=== PATIENT | male | born 1955 | race Caucasian/White ===

== ENCOUNTER 2017-01-06 20:31 | Inpatient (IN) | payer MEDICARE, OTHER ==
[~2017-01-06] VITALS: Ht 165.1 cm; Wt 45.4 kg
[~2017-01-06 20:31] MED LIST: ALBU2.5V7 NEB; Acetaminophen PO; FERR325T28 PO; FLUC100T PO; Nystatin PO; PANT40TA4 PO; [UNRECOGNIZED DRUG - CODE] GT
[2017-01-06] MEDS ORDERED: DOCU-141 PO (20:57)
[2017-01-06] MEDS ORDERED: ACET-2605 PO (20:58)
[2017-01-06] MEDS ORDERED: NA P133E PR (20:58)
[2017-01-06] MEDS ORDERED: ESCI10TA PO (20:58)
[2017-01-06] MEDS ORDERED: MAGN400O6 PO (20:58)
[2017-01-06] MEDS ORDERED: BISA10SU61 PR (20:58)
[2017-01-06] MEDS ORDERED: QUET100T PO (20:58)
[2017-01-06] MEDS ORDERED: ACET-2154 PO (20:58)
--- NOTE | 2017-01-06 21:10 | NUR ---
Patient refusing all tests, including MSE. ERMD notified, orders received.
[2017-01-06] MEDS ORDERED: LORAZEPAM 2 MG/1 ML VIAL IM ONE (21:15)
[2017-01-06] MEDS ORDERED: LORAZEPAM 2 MG/1 ML VIAL ONE (21:26)
--- NOTE | 2017-01-06 23:11 | NUR ---
Pt. admitted to GPS, under care of Dr. Harris Belongs List completed
--- NOTE | 2017-01-06 23:35 | NUR ---
GPS: Pt. admitted to GPS, under care of Dr. Harris, from ER via [facility]. unable to assess patient patient sleepy,unable to answer question. placed on 72 hrs hold for dts/gd. no agitation noted continue monitoring for safety.
--- NOTE | 2017-01-06 23:50 | NUR ---
GPS: PATIENT REFUSED BODY CHECK AND PHOTO TAKEN.
[2017-01-07] MEDS ORDERED: LORAZEPAM 0.5 MG TABLET PO PRN (00:15)
[2017-01-07] MEDS ORDERED: MAGNESIUM HYDROXIDE 30 ML LIQUID UDC PO PRN (00:15)
[2017-01-07] MEDS ORDERED: ZOLPIDEM 5 MG TABLET PO PRN (00:15)
[2017-01-07] MEDS ORDERED: MAG HYDROX/AL HYDROX/SIMETH 30 ML LIQUID UDC PO PRN (00:15)
[2017-01-07] MEDS ORDERED: ACETAMINOPHEN 325 MG TABLET PO PRN (00:15)
[2017-01-07 01:14] VITALS: BP 90/51
--- NOTE | 2017-01-07 06:52 | NUR ---
GPS: REMAIN UNCOOPERATIVE WITH CARE. PATIENT AMBULATE WITH ASSISTANCE.REFUSED SHOWER THIS MORNING. SLEPT 06:15 HRS THROUGH THE NIGHT. CONTINUE PLAN OF CARE. MONITORING FOR SAFETY.
[2017-01-07 07:30] VITALS: BP 91/54
--- NOTE | 2017-01-07 09:16 | NUR ---
TONY COHEN NP. STATES HE WILL RECONCILE MEDS.
--- NOTE | 2017-01-07 11:29 | NUR ---
Initial discharge instructions: Pt resides at [facility] [[address] [place] [address];[phone]].Pt refused to participate in interview,and discuss discharge plans.Per mother,she reports it would be best for him to return to the facility.Spoke with Lean in admissions who reported the pt will be accepted back once stable.SW will speak with pt and MD regarding appropriate discharge plans.SW will form a safe and proper discharge.
[2017-01-07] MEDS: risperiDONE-M 0.5 MG TAB.RAPDIS PO SCH ×2 (11:30→17:00)
--- NOTE | 2017-01-07 12:31 | NUR ---
PT REFUSED HIS FIRST DOSE OF RISPERDAL 2MG PO. PT STATED "THE ANSWER IS NO. I DON'T HAVE A DOCTOR. I REFUSE." WILL CONTINUE TO MONITOR.
--- NOTE | 2017-01-07 13:00 | NUR ---
AFTER EATING LUNCH STAFF WITNESSED PT STICK FINGER DOWN THROAT AND VOMIT ON BED. WHEN ASKED WHY HE WAS DOING THAT HE PUT THE SHEET OVER HIS HEAD AND STATED "VALERIO REY"
--- NOTE | 2017-01-07 14:45 | NUR ---
STAFF WITNESSED PT INDUCING VOMIT ON FLOOR IN ROOM. PT WOULD NOT RESPOND TO THE STAFF WHEN ASKED QUESTIONS, REFUSES TO MAKE EYE CONTACT, REFUSES TO MOVE TO BATHROOM/TOILET/TRASH CAN.
[2017-01-07 15:00] VITALS: BP 82/55
[2017-01-07] MEDS ORDERED: IV NS 1000 ML 2,000 ML IV ONE (16:30)
--- NOTE | 2017-01-07 16:31 | NUR ---
PT HAS HAD SEVERAL MORE EPISODES OF VOMITING (NOT SELF INDUCED WITH FINGER). BP 78/32 HR 86, DENIES FEELING DIZZY. NOTIFIED AMANDA COHEN, [employer] WHO ORDERED 2LNS BOLUS. PT IS REFUSING TO ALLOW US TO PLACE IV OR GET FLUIDS DESPITE EDUCATION ON WHY IT IS NECESSARY. WHEN ASKED WHY HE DOES NOT WANT IV FLUIDS PT REPEATEDLY STATES "VALERIO BARLOW BUNCH". AMANDA COHEN NOTIFIED OF REFUSAL. PT REMAINS ON 1:1 FOR SAFETY.
[2017-01-07 20:20] VITALS: BP 86/55
--- NOTE | 2017-01-08 03:12 | NUR ---
Patient was noted to have induced vomiting while in his bathroom.
--- NOTE | 2017-01-08 06:55 | NUR ---
It was reported to this sign writer letterer or painter by staff assigned to be with patient on 1:1 supervision that at approx 0358, while in the main hallway, this patient attempted to punch staff, then he lost his balance and his forehead made contact with the edge of a wall, then walked the hallway and went back to his bed. Attempted to clean the affected area, however, patient refused. He pulled his blankets over his head and stated, "go way." Attempted to clean area again, and was able to clean the affected area, a laceration of approximately 1cm long was noted in left side of inner eyebrow; however, he pulled away and went back to his bed and covered himself including stating, "go away". attempted x 3 bur continue refusing assessment.
[2017-01-08 07:30] VITALS: BP 91/59
[2017-01-08] MEDS: risperiDONE-M 0.5 MG TAB.RAPDIS PO SCH ×2 (09:00→16:10)
[2017-01-08] MEDS: ESCITALOPRAM OXALATE 10 MG TABLET PO SCH (09:00)
[2017-01-08] MEDS: NICOTINE 14 MG/24HR PATCH TD SCH (09:00)
[2017-01-08 15:51] VITALS: BP 80/55
--- NOTE | 2017-01-08 17:27 | NUR ---
Pt continues to refuse to let nurse take picture or treat laceration to forehead. Easily irritable and quite unpredictable. Refuses medications and attempts to negotiate with nurse for a cigarette. Pt noted to have one episode of self inducing vomiting in unit community water fountain. EVS informed and cleaned. Continue on 1:1 supervision. Pt also refused Podiatry consult with Dr. Leon.
--- NOTE | 2017-01-08 20:19 | NUR ---
PATIENT REFUSED 2100 VITAL SIGNS. PATIENT REMAINS ON A 1:1 DISPLAYS UNPREDICTABLE BEHAVIOR INCLUDING EPISODES WITH AGGRESSIVE OUTBURSTS TOWARDS STAFF WHEN REDIRECTED.
--- NOTE | 2017-01-09 05:40 | NUR ---
Patient continue on 1:1 supervision. He slept approx 3.5hrs through the night. He woke up at approx 0500 and had a shower; he then asked for apple sauce, which he ate. At approx 0540 patient induced vomiting by putting his finger inside his mouth and inducing the gagged reflex. Then he went back to bed. Patient also refused blood drawn yesterday morning and vital sign last night. He continue very labile, easily irritable with flat affect and depressed mood. Pt unable to make eye contact, poor insight. we will continue to monitor.
[2017-01-09 07:30] VITALS: BP 91/48
[2017-01-09] MEDS: ESCITALOPRAM OXALATE 10 MG TABLET PO SCH (08:27)
[2017-01-09] MEDS: risperiDONE-M 0.5 MG TAB.RAPDIS PO SCH ×2 (08:27→17:00)
[2017-01-09] MEDS: NICOTINE 14 MG/24HR PATCH TD SCH (08:28)
[2017-01-09 20:11] VITALS: BP 88/51
[2017-01-10 07:30] VITALS: BP 99/66
--- NOTE | 2017-01-10 08:23 | NUR ---
GPS: Nursing Notes: Chemical Restraint: Patient is awake and responding to his name, poor anger management, loud and angry affect, verbal abusive toward the psychiatrist, using profanities, threatening behavior, overly disruptive by shouting profanities, restless, medicated with Haldol 5mg IM and Benadryl 25mg IM STAT now, B/P=94/66, 64, 18, continue to monitor for safety, continue with 1:1 sitter for safety, continue with treatment plan.
[2017-01-10] MEDS: NICOTINE 14 MG/24HR PATCH TD SCH (08:27)
[2017-01-10] MEDS: ESCITALOPRAM OXALATE 10 MG TABLET PO SCH (08:27)
[2017-01-10] MEDS: risperiDONE-M 0.5 MG TAB.RAPDIS PO SCH ×2 (08:27→16:19)
[2017-01-10] MEDS ORDERED: HALOPERIDOL LACTATE 5 MG/1 ML VIAL IM ONE (08:30)
[2017-01-10] MEDS ORDERED: diphenhydrAMINE 50 MG/1 ML VIAL IM ONE (08:30)
--- NOTE | 2017-01-10 08:53 | NUR ---
GPS: Nursing Notes: Reassessment of Chemical Restraint: Patient continue to be with paranoid behavior, suspicious, guarded, refusing his medications, angry affect, medications IM was helpful, but not effective, gets easily irritable when redirected, refusing V/S, continue with 1:1 sitter for safety, continue with treatment plan.
[2017-01-10 15:28] VITALS: BP 93/55
--- NOTE | 2017-01-10 18:35 | NUR ---
GPS: Nursing Notes: Destructive Behavior To Self: Patient is awake and responding to his name, poor anger management, gets easily irritable when redirected, poor impulse control, resistant with nursing care, suspicious, guarded, refusing his medication PO, "Get out of here..", episodes of clenching his hands when shouting at staff, unable to formulate a plan for self care, continue with 1:1 sitter for safety, per sitter, patient intended 20 times to induce vomiting, but he only vomited 5 times, refusing to participate in therapeutic groups, isolative and withdrawn in his room, continue with treatment plan.
[2017-01-10 20:13] VITALS: BP 96/68
--- NOTE | 2017-01-11 06:56 | NUR ---
Patient slept for approx 7.30 hrs through the night. he induced gagged reflex x1 and induced vomiting x 2 during the shift. he was calm, continue with poor insight, not making eye contact and selectively answering questions.
[2017-01-11 07:30] VITALS: BP 91/61
[2017-01-11] MEDS: ESCITALOPRAM OXALATE 10 MG TABLET PO SCH (08:33)
[2017-01-11] MEDS: NICOTINE 14 MG/24HR PATCH TD SCH (08:34)
[2017-01-11] MEDS: risperiDONE-M 0.5 MG TAB.RAPDIS PO SCH (08:34)
[2017-01-11] MEDS: HALOPERIDOL 5 MG TABLET PO SCH ×2 (09:45→17:05)
[2017-01-11] MEDS: BENZTROPINE MESYLATE 0.5 MG TABLET PO SCH ×2 (09:45→17:05)
[2017-01-11] MEDS: HALOPERIDOL LACTATE 5 MG/1 ML VIAL IM PRN (10:51)
[2017-01-11] MEDS: diphenhydrAMINE 50 MG/1 ML VIAL IM PRN (10:51)
[2017-01-11 16:00] VITALS: BP 90/46
[2017-01-11 20:06] VITALS: BP 85/56
[2017-01-12 07:30] VITALS: BP 90/51
[2017-01-12 08:38] LABS: BASOPHILS % (AUTO) 0.5 % (0.0-2.0); EOSINOPHILS # (AUTO) 0.1 K/uL (0.0-0.7); EOSINOPHILS % (AUTO) 0.7 % (0.0-7.0); HEMATOCRIT 36.4 % (40-50); HEMOGLOBIN 11.8 G/DL (14.0-18.0); LYMPHOCYTES # (AUTO) 1.4 K/UL (0.8-4.8); MEAN CORPUSCULAR HEMOGLOBIN 31.2 UUG (27.0-31.0); MEAN CORPUSCULAR HGB CONC 33 g/dL (32.0-37.0); MONOCYTES # (AUTO) 0.6 K/UL (0.1-1.30); MONOCYTES % (AUTO) 7.7 % (0.0-11.0); NEUTROPHILS # (AUTO) 6.3 K/UL (1.8-8.9); NEUTROPHILS % (AUTO) 74.1 % (38.5-71.5); PLATELET COUNT (AUTO) 322 K/UL (150-450); RED BLOOD CELL COUNT(AUTO) 3.79 MIL/UL (4.7-6.1); WHITE BLOOD COUNT (AUTO) 8.4 K/UL (4.0-11.2)
[2017-01-12] MEDS: NICOTINE 14 MG/24HR PATCH TD SCH (09:00)
[2017-01-12 09:35] LABS: BILIRUBIN,TOTAL 0.2 mg/dL (0.2-1.0); MAGNESIUM 2.1 mg/dL (1.8-2.4); PHOSPHOROUS 3.7 mg/dL (2.5-4.9); TOTAL PROTEIN, SERUM 7.4 g/dL (6.4-8.2)
[2017-01-12] MEDS: FLUOXETINE HCL 20 MG CAPSULE PO SCH (10:00)
[2017-01-12] MEDS: HALOPERIDOL 5 MG TABLET PO SCH ×2 (10:01→16:42)
[2017-01-12] MEDS: BENZTROPINE MESYLATE 0.5 MG TABLET PO SCH ×2 (10:01→16:45)
[2017-01-12 10:38] LABS: THYROID STIMULATING HORMONE 2.312 mIU/mL (0.358-3.740)
[2017-01-12 16:00] VITALS: BP 93/59
--- NOTE | 2017-01-12 19:26 | NUR ---
PT REMAINS ON 1:1 FOR SAFETY. CONTINUES TO SELF INDUCE VOMITING APPROXIMATELY 15 TIMES TODAY. TOOK MEDS PO (DID NOT VOMIT UNTIL 2 HOURS LATER).
[2017-01-12 20:39] VITALS: BP 94/57
--- NOTE | 2017-01-12 21:21 | NUR ---
PATIENT RECEIVED IN ROOM COVERING SELF WITH BLANKET, PATIENT REMAINS WITH A 1:1 SITTER DUE TO INDUCED VOMITING. PATIENT ISOLATIVE/WITHDRAWN, HAS MINIMAL EYE CONTACT, FLAT AFFECT, AND SELECTIVE WITH QUESTIONS. PATIENT DENIES PAIN AT THIS TIME, WILL CONTINUE TO MONITOR. PATIENT IS AMBULATORY/SELF CARE AND ABLE TO MAKE NEEDS KNOWN. NO AGGRESSIVE OR COMBATIVE BEHAVIOR NOTED, WILL CONTINUE TO MONITOR. BED IN LOWEST POSITION, BED LOCKED. PATIENT ENCOURAGED TO EXPRESS FEELINGS AND CONCERNS, WILL CONTINUE TO MONITOR AND REDIRECT NEEDED.
--- NOTE | 2017-01-13 06:39 | NUR ---
PER 1:1 SITTER PATIENT HAD 2 EPISODES OF INDUCED VOMITING DURING HAND I CUTTER. Addendum: 01/13/17 at 0641 by LIV PEREZ RN PATIENT OFFERED PRN FOR SLEEP, PATIENT REFUSED MEDICATION.
[2017-01-13 07:30] VITALS: BP 90/64
[2017-01-13] MEDS: HALOPERIDOL 5 MG TABLET PO SCH (08:23)
[2017-01-13] MEDS: BENZTROPINE MESYLATE 0.5 MG TABLET PO SCH ×2 (08:24→17:00)
[2017-01-13] MEDS: FLUOXETINE HCL 20 MG CAPSULE PO SCH (08:29)
[2017-01-13] MEDS: NICOTINE 14 MG/24HR PATCH TD SCH (08:30)
--- NOTE | 2017-01-13 08:46 | NUR ---
GPS/RN- patient reported to of induced vomiting after med administration within 15 mins of administration. contacted Dr Harris, patient vomiting medication after short time of administration considered refusal, continue with Riloraine order of administering IM Haldol. Received orders if patient induces vomiting within 30 minutes of med administration of Haldol than it will be considered refusal and proceed with Haldol IM order. also received orders to change patient med from pill form of Haldol to Liquid. repeated order back to MD.
[2017-01-13] MEDS: HALOPERIDOL LACTATE 5 MG/1 ML VIAL IM PRN (09:06)
[2017-01-13] MEDS: diphenhydrAMINE 50 MG/1 ML VIAL IM PRN (09:08)
--- NOTE | 2017-01-13 11:32 | NUR ---
GPS/RN- patient continues to induce vomiting this morning, vomiting on his bed and floor and gown, patient redirected irritable and angry, posturing at staff, patient increasing hostility , high risk for violence at staff, frequently redirected, continues to shout at staff "shut up, shut up" leaning forward and fisting his hands. Unable to redirect. Dr Harris notified, chemical restraint orders received Zyprexa 10mg IM once.
[2017-01-13] MEDS ORDERED: OLANZAPINE 10 MG VIAL IM ONE (11:45)
[2017-01-13 16:00] VITALS: BP 92/48
[2017-01-13] MEDS ORDERED: diphenhydrAMINE 50 MG/1 ML VIAL IM PRN (17:00)
[2017-01-13] MEDS: HALOPERIDOL LACTATE 10 MG/5 ML ORAL SOLUTION UDC PO SCH (17:00)
[2017-01-13] MEDS ORDERED: HALOPERIDOL LACTATE 10 MG/5 ML ORAL SOLUTION UDC PO SCH (17:00)
[2017-01-13] MEDS ORDERED: HALOPERIDOL LACTATE 5 MG/1 ML VIAL IM PRN (17:00)
--- NOTE | 2017-01-13 18:28 | NUR ---
PT SELF INDUCED VOMITING 5 TIMES TODAY.
[2017-01-13 20:19] VITALS: BP 101/67
--- NOTE | 2017-01-13 20:49 | NUR ---
PATIENT RECEIVED IN ROOM COVERING SELF WITH BLANKET, PATIENT REMAINS WITH A 1:1 SITTER DUE TO INDUCED VOMITING. PATIENT ISOLATIVE/WITHDRAWN, HAS MINIMAL EYE CONTACT, FLAT AFFECT, AND SELECTIVE WITH QUESTIONS. PATIENT REMAINS UNPREDICTABLE. PATIENT DENIES PAIN AT THIS TIME, WILL CONTINUE TO MONITOR. PATIENT IS AMBULATORY/SELF CARE AND ABLE TO MAKE NEEDS KNOWN. NO AGGRESSIVE OR COMBATIVE BEHAVIOR NOTED, WILL CONTINUE TO MONITOR. BED IN LOWEST POSITION, BED LOCKED. PATIENT ENCOOURAGED TO EXPRESS FEELINGS AND CONCERNS, WILL CONTINUE TO MONITOR AND REDIRECT NEEDED.
--- NOTE | 2017-01-14 06:58 | NUR ---
PATIENT SELF INDUCED VOMITED 3 TIMES DURING SOCK LINER.
[2017-01-14 07:30] VITALS: BP 99/59
[2017-01-14] MEDS: BENZTROPINE MESYLATE 0.5 MG TABLET PO SCH ×2 (08:46→17:30)
[2017-01-14] MEDS: FLUOXETINE HCL 20 MG CAPSULE PO SCH (08:46)
[2017-01-14] MEDS: HALOPERIDOL LACTATE 10 MG/5 ML ORAL SOLUTION UDC PO SCH ×3 (08:46→17:30)
[2017-01-14] MEDS: NICOTINE 14 MG/24HR PATCH TD SCH (08:48)
[2017-01-14 15:09] VITALS: BP 90/58
[2017-01-14 20:06] VITALS: BP 98/61
[2017-01-15 07:30] VITALS: BP 90/63
[2017-01-15] MEDS: HALOPERIDOL LACTATE 10 MG/5 ML ORAL SOLUTION UDC PO SCH ×3 (08:39→16:09)
[2017-01-15] MEDS: NICOTINE 14 MG/24HR PATCH TD SCH (08:39)
[2017-01-15] MEDS: BENZTROPINE MESYLATE 0.5 MG TABLET PO SCH ×2 (08:39→16:09)
[2017-01-15] MEDS: FLUOXETINE HCL 20 MG CAPSULE PO SCH (08:44)
[2017-01-15 16:45] VITALS: BP 92/56
[2017-01-15 20:22] VITALS: BP 91/54
[2017-01-16 07:37] VITALS: BP 91/50
[2017-01-16] MEDS: BENZTROPINE MESYLATE 0.5 MG TABLET PO SCH ×2 (08:29→16:00)
[2017-01-16] MEDS: NICOTINE 14 MG/24HR PATCH TD SCH (08:29)
[2017-01-16] MEDS: HALOPERIDOL LACTATE 10 MG/5 ML ORAL SOLUTION UDC PO SCH ×3 (08:29→16:00)
[2017-01-16] MEDS: FLUOXETINE HCL 20 MG CAPSULE PO SCH (09:00)
[2017-01-16 15:20] VITALS: BP 90/54
[2017-01-16 19:59] VITALS: BP 100/62
--- NOTE | 2017-01-16 20:39 | NUR ---
PATIENT RECEIVED IN ROOM COVERING SELF WITH BLANKET, PATIENT REMAINS WITH A 1:1 SITTER DUE TO INDUCED VOMITING. PATIENT ISOLATIVE/WITHDRAWN, HAS MINIMAL EYE CONTACT, FLAT AFFECT, AND SELECTIVE WITH QUESTIONS. PATIENT REMAINS UNPREDICTABLE. PATIENT DENIES PAIN AT THIS TIME, WILL CONTINUE TO MONITOR. PATIENT IS AMBULATORY/SELF CARE AND ABLE TO MAKE NEEDS KNOWN. NO AGGRESSIVE OR COMBATIVE BEHAVIOR NOTED, WILL CONTINUE TO MONITOR. BED IN LOWEST POSITION, BED LOCKED. PATIENT ENCOURAGED TO EXPRESS FEELINGS AND CONCERNS, WILL CONTINUE TO MONITOR AND REDIRECT NEEDED.
--- NOTE | 2017-01-17 06:47 | NUR ---
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
[2017-01-17 07:30] VITALS: BP 93/60
[2017-01-17] MEDS: NICOTINE 14 MG/24HR PATCH TD SCH (08:11)
[2017-01-17] MEDS: BENZTROPINE MESYLATE 0.5 MG TABLET PO SCH ×2 (08:11→16:49)
[2017-01-17] MEDS: FLUOXETINE HCL 20 MG CAPSULE PO SCH (08:11)
[2017-01-17] MEDS: HALOPERIDOL LACTATE 10 MG/5 ML ORAL SOLUTION UDC PO SCH ×4 (08:11→21:07)
[2017-01-17] MEDS ORDERED: HALOPERIDOL LACTATE 5 MG/1 ML VIAL IM PRN (09:00)
[2017-01-17 16:54] VITALS: BP 94/57
[2017-01-17 20:33] VITALS: BP 94/53
--- NOTE | 2017-01-17 20:40 | NUR ---
SPOKE WITH DR. RODRIGUEZ REGARDING PATIENT PROCEDURE CONSENT FOR EGD. DR RODRIGUEZ SPOKE WITH GI SPECIALIST DR. MICHAEL, AWAITING PATIENT'S CONSENT. PATIENT REFUSING PROCEDURE " IT'S MY THROAT NO ONE WILL TOUCH IT." EXPLAINED THE PROCEDURE AND THE IMPORTANCE OF HAVING THE PROCEDURE, PATIENT CONTINUES TO REFUSE. CALLED DR. RODRIGUEZ REGARDING REFUSAL. PATIENT IS RIESED, WILL ENDORSE TO ON COMING NURSE TO CONTACT DR. RUTH (PSYCHIATRIST) IF PATIENT HAS THE RIGHT TO REFUSE BECAUSE OF PATIENT RIESED.
[2017-01-18] MEDS: PANTOPRAZOLE SODIUM 40 MG TABLET.DR PO SCH (06:36)
--- NOTE | 2017-01-18 06:49 | NUR ---
GPS: Pt.continues to have induced vomitting x6 during the shift. Discouraged from doing so by staff. Will continue to monitor.
[2017-01-18 07:17] LABS: BASOPHILS % (AUTO) 0.4 % (0.0-2.0); EOSINOPHILS # (AUTO) 0.1 K/uL (0.0-0.7); EOSINOPHILS % (AUTO) 0.8 % (0.0-7.0); HEMATOCRIT 27.4 % (40-50); HEMOGLOBIN 9.1 G/DL (14.0-18.0); LYMPHOCYTES # (AUTO) 1.6 K/UL (0.8-4.8); LYMPHOCYTES % (AUTO) 17.6 % (20.5-51.5); MEAN CORPUSCULAR HEMOGLOBIN 31.3 UUG (27.0-31.0); MEAN CORPUSCULAR HGB CONC 33 g/dL (32.0-37.0); MEAN CORPUSCULAR VOLUME 94.3 FL (82.0-92.0); MONOCYTES # (AUTO) 0.9 K/UL (0.1-1.30); MONOCYTES % (AUTO) 9.6 % (0.0-11.0); NEUTROPHILS # (AUTO) 6.3 K/UL (1.8-8.9); NEUTROPHILS % (AUTO) 71.6 % (38.5-71.5); PLATELET COUNT (AUTO) 232 K/UL (150-450); WHITE BLOOD COUNT (AUTO) 8.9 K/UL (4.0-11.2)
[2017-01-18 07:30] VITALS: BP 99/51
[2017-01-18 08:56] LABS: BILIRUBIN,TOTAL 0.1 mg/dL (0.2-1.0); CREATININE 0.8 mg/dL (0.6-1.3); PHOSPHOROUS 3.2 mg/dL (2.5-4.9); POTASSIUM 4.3 mmol/L (3.5-5.1); TOTAL PROTEIN, SERUM 6.7 g/dL (6.4-8.2)
[2017-01-18] MEDS ORDERED: HALOPERIDOL DECANOATE 50 MG/1 ML AMPUL IM SCH (09:00)
[2017-01-18] MEDS: NICOTINE 14 MG/24HR PATCH TD SCH (09:00)
[2017-01-18] MEDS: BENZTROPINE MESYLATE 0.5 MG TABLET PO SCH ×2 (09:01→18:10)
[2017-01-18] MEDS: HALOPERIDOL LACTATE 10 MG/5 ML ORAL SOLUTION UDC PO SCH ×4 (09:02→21:02)
[2017-01-18 15:05] VITALS: BP 90/49
[2017-01-18 20:00] VITALS: BP 93/60
[2017-01-18 20:54] VITALS: BP 93/60
[2017-01-19] MEDS: PANTOPRAZOLE SODIUM 40 MG TABLET.DR PO SCH (06:16)
[2017-01-19 07:30] VITALS: BP 96/48
[2017-01-19] MEDS: BENZTROPINE MESYLATE 0.5 MG TABLET PO SCH (08:40)
[2017-01-19] MEDS: HALOPERIDOL LACTATE 10 MG/5 ML ORAL SOLUTION UDC PO SCH ×2 (08:40→13:02)
[2017-01-19] MEDS: NICOTINE 14 MG/24HR PATCH TD SCH (08:44)
--- NOTE | 2017-01-19 11:46 | NUR ---
DC Note: Patient will be discharged to [facility] [[address] [place] [address]; ] via ambulance at 2:00 pm. Please schedule an ambulance for the patient. Spoke with Merlin at the facility who stated they would accept the patient today. TONY called patient's mother, Thais [phone] and left a voicemail including discharge plans. Patient will follow-up with (Ep Specialist) and (Psychiatrist) at the facility. For smoking cessation, patient was referred to [employer] 800-LUNGUSA and [employer] [phone]. TONY will email eating disorder programs ([facility], [facility], and [facility] eating disorder program) to Merlin ([email or web address]) in admissions as requested.
[2017-01-19 16:00] VITALS: BP 91/55
== END 2017-01-19 16:20 | DRG 885 ==
LOC: ER 20:31 → GPS 23:14
PROVIDERS: ADMIT Psychiatry & Neurology Psychiatry; ATTEND Nurse Practitioner Acute Care
DX: F20.0 Paranoid schizophrenia (principal); E43 Unspecified severe protein-calorie malnutrition; N18.9 Chronic kidney disease, unspecified; J90 Pleural effusion, not elsewhere classified; F32.3 Major depressive disorder, single episode, severe with psychotic features; A04.9 Bacterial intestinal infection, unspecified; E87.1 Hypo-osmolality and hyponatremia; D62 Acute posthemorrhagic anemia; Z68.1 Body mass index [BMI] 19.9 or less, adult; K22.10 Ulcer of esophagus without bleeding; K22.0 Achalasia of cardia; D51.9 Vitamin B12 deficiency anemia, unspecified; R62.7 Adult failure to thrive; Z88.1 Allergy status to other antibiotic agents; Z88.0 Allergy status to penicillin; Z88.8 Allergy status to other drugs, medicaments and biological substances; Z87.891 Personal history of nicotine dependence; K21.9 Gastro-esophageal reflux disease without esophagitis; Z91.14 Patient's other noncompliance with medication regimen; Z91.19 Patient's noncompliance with other medical treatment and regimen
CPT/HCPCS: 36415; 71010; 83735; 84100; 84443; 85025; 85610; 93005; A4663; J1200; J1630; J1631; J2060; J2358; J7030